=== PATIENT | male | born 1995 | race Caucasian/White ===

== ENCOUNTER 2022-12-06 22:23 | Emergency (ER) | payer MEDICAID ==
[~2022-12-06] VITALS: Ht 170.2 cm; Wt 68.2 kg
[2022-12-06 22:34] VITALS: BP 137/99
== END 2022-12-07 00:55 | disposition home or self-care (01) ==
LOC: ER 22:24
DX: K92.2 Gastrointestinal hemorrhage, unspecified (principal); F17.200 Nicotine dependence, unspecified, uncomplicated; F12.90 Cannabis use, unspecified, uncomplicated; Z72.89 Other problems related to lifestyle
CPT/HCPCS: 99281

== ENCOUNTER 2023-03-09 02:38 | Emergency (ER) | payer MEDICAID ==
[~2023-03-09] VITALS: Ht 170.2 cm; Wt 68.2 kg
[2023-03-09 02:47] VITALS: BP 121/87; PULSE 60; RESP 18; TEMP 98.3; O2SAT 99
== END 2023-03-09 07:15 | disposition left against medical advice (07) ==
LOC: ER 02:39
DX: K08.89 Other specified disorders of teeth and supporting structures (principal); Z53.21 Procedure and treatment not carried out due to patient leaving prior to being seen by health care provider
CPT/HCPCS: 99281